=== PATIENT | female | born 1960 | race Two or more races ===

== ENCOUNTER → 2016-12-23 | Outpatient (CLI) | payer OTHER ==
[~2016-12-23] MED LIST: AMLO10TA2 PO; ASPI1TAB69 PO; FUROSEMIDE 40 MG/4 ML VIAL ONE
--- NOTE | 2016-12-23 10:48 | RADRPT ---
EXAM DATE/TIME: 12/23/2016 09:00 [place] COMPARISON: No previous studies available for comparison. INDICATIONS : Extrarenal pelvis. Low back pain. DOSE: 21.1 mCi Tc99m DTPA IV MEDICATION: 40 mg Lasix IV MEDICAL HISTORY : Hypertension. SURGICAL HISTORY : Tonsillectomy. Cholecystectomy. ENCOUNTER: Initial ACUITY: 1 day PAIN SCALE: 0/10 LOCATION: Bilateral lower quadrant TECHNIQUE: Dynamic images were performed in the posterior projection for a total of 28 minutes. FINDINGS: FLOW: There is symmetric arrival of bolus to both kidneys. There is homogeneous perfusion to both kidneys. Renal function is 54% on the right and 46% on the left. EXCRETION: There is normal renal cortical transit time and normal rate of washout from the parenchyma. CONCLUSION: Normal study. No hydronephrosis. Sudhakar English MD on December 23, 2016 at 10:45 Board Certified Radiologist. This report was verified electronically.
== END ==
LOC: HRAD 08:39
PROVIDERS: ATTEND Urology
DX: Q63.8 Other specified congenital malformations of kidney (principal)
CPT/HCPCS: 78708; A9539; J1940